=== PATIENT | male | born 1995 | race Two or more races ===

== ENCOUNTER 2023-06-15 21:19 | Emergency (ER) | payer OTHER ==
[~2023-06-15] VITALS: Ht 180.3 cm; Wt 89.8 kg
[2023-06-15] MEDS ORDERED: FAMOTIDINE/PF 20 MG in 0.9 % SODIUM CHLORIDE 8 ML IV PUSH STA (22:42)
[2023-06-15] MEDS ORDERED: KETOROLAC TROMETHAMINE 30 MG VIAL IV ONE (22:45)
[2023-06-15] MEDS ORDERED: 0.9 % SODIUM CHLORIDE 1,000 ML IV SCH (22:45)
[2023-06-15 23:23] LABS: HEMOGLOBIN 16.2 g/dL (13-16.00); MEAN CELL VOLUME 81.8 fL (80.0-100.00); MEAN CORPUSCULAR HEMOGLOBIN 27.7 pg (27.00-32.0); MEAN CORPUSCULAR HGB CONC 33.8 g/dl (32.0-36.0); PLATELET COUNT 266 K/uL (150-450); RED BLOOD COUNT 5.86 M/uL (4.00-6.00); RED CELL DISTRIBUTION WIDTH 14.2 % (11.5-14.5)
[2023-06-16 01:30] LABS: ALBUMIN 3.7 gm/dL (3.4-5.0); BILIRUBIN TOTAL 0.34 mg/dL (0.3-1.2); CALCIUM 8.6 mg/dL (8.5-10.1); CREATININE SERUM 1.03 mg/dL (0.70-1.30); GFR 85.99; GLOBULINA 3.5 G/DL (2.4-3.5); POTASSIUM 4.31 mEq/L (3.5-5.1); TOTAL PROTEIN 7.2 gm/dL (6.4-8.2)
[2023-06-16] MEDS ORDERED: METRONIDAZOLE/SODIUM CHLORIDE 500 MG/100 ML PIGGYBACK IV STA (02:41)
[2023-06-16] MEDS ORDERED: CIPROFLOXACIN IN 5 % DEXTROSE 400 MG/200 ML PIGGYBAG IV STA (02:41)
[2023-06-16] MEDS ORDERED: HYOSCYAMINE SULFATE 0.125 MG TAB.SUBL SL STA (02:41)
[2023-06-16] MEDS ORDERED: CIPRO500 MG PO (06:48)
[2023-06-16] MEDS ORDERED: LEVSIN/SL0.125 MG SL (06:48)
== END 2023-06-16 06:56 ==
LOC: ER 21:19 → EDSEX 21:19 → ER 21:27
PROVIDERS: General Practice
DX: R10.32 Left lower quadrant pain (principal)